=== PATIENT | male | born 1945 | race Caucasian/White ===

== ENCOUNTER 2020-04-05 03:03 | Outpatient (CLI) | payer MEDICARE, SELFPAY ==
[2020-04-05 12:47] LABS: Anion Gap 8.6 mmol/L (3-11); BUN 15 mg/dL (7-18); CO2 27.4 mmol/L (21.0-32.0); CREATININE 1.24 mg/dL (0.70-1.30); Calcium 9.4 mg/dL (8.5-10.1); Calculated LDL 93 mg/dL (<100); Chloride 104 mmol/L (98-107); Cholesterol 170 mg/dL (<200); Estimated GFR 57.14 (mL/min/1.73m2); Glucose 88 mg/dL (74-106); HDL Cholesterol 68 mg/dL (40-60); Potassium 4.9 mmol/L (3.5-5.1); Sodium 140 mmol/L (136-145); Triglyceride 49 mg/dL (<150)
== END 2020-04-05 03:23 ==
PROVIDERS: PCP Nurse Practitioner; Visit Provider Family Medicine
DX: I10 Essential (primary) hypertension (principal)
CPT/HCPCS: 36415; 80048; 80061

== ENCOUNTER 2021-04-05 03:52 | Outpatient (CLI) | payer MEDICARE, SELFPAY ==
[2021-04-05 09:23] LABS: Calculated LDL 103 mg/dL (<100); Cholesterol 190 mg/dL (<200); HDL Cholesterol 80 mg/dL (40-60); Triglyceride 38 mg/dL (<150)
== END 2021-04-05 03:53 | disposition home or self-care (01) ==
LOC: LBO 03:52
PROVIDERS: PCP Nurse Practitioner; Visit Provider Nurse Practitioner
DX: E78.5 Hyperlipidemia, unspecified (principal)
CPT/HCPCS: 36415; 80061

== ENCOUNTER 2022-03-15 01:35 | Outpatient (CLI) | payer MEDICARE, SELFPAY ==
--- OUTSIDE RECORDS SUMMARY | 2022-03-15 01:37 | XMS_ITS | Encounter Summary ---
:1945 Author Organization [facility] Address [address] [place] [address] Care Team Providers Name Role Phone Unavailable Primary Care Provider Unavailable Encounter Details Date Type Department Care Team Description 03/16/2004 Results Only [facility] - Comfort [place]in MD conversion [address] [place] [phone] Social History Tobacco Use Types Packs/Day Years Used Date Never Assessed Sex Assigned at Date Recorded Not on file documented as of this encounter Plan of Treatment Not on filedocumented as of this encounter Procedures Procedure Name Priority Date/Time Associated Diagnosis Comme nts SURGICAL PATHOLOGY Routine 03/16/2004 0:00 EDT Re sults for this procedure are i n the results section. documented in this encounter Results SURGICAL PATHOLOGY (03/16/2004 0:00 EDT) Pathology Report: SURGICAL PATHOLOGY REPORT SHASHI PINEDA Reports generated via electronic interface contain howie ginal data; LAB however they are lacking the format of the original re port. Caution should be taken when reading/interpreting unfo rmatted reports. Name: ? JOSE GASCA ? Accession #: ? [id number] ? : ? 1945 (Age: 58) ??M ? Collect Date: ? 03/16/2004 ? Location: ? [facility] ? Receive Date: ? 004 ? Provider: DANIEL HUGHES MD Copy to: COMFORT CASTRO MD ? Final Pathologic Diagnosis: ? Colon, polyp at 30.0 cm, polypectomy: - Tubular adenoma. Document reviewed and electronically signed by: Franklin Strong MD Report ??Date: 03/18/2004 16:45 By the signature above, the attending physician certif ies that he/she has personally conducted a gross and/or microscopic examin ation of the described specimens and rendered or confirmed the above diagnosi s. Specimen(s) Received: ? 30 cm bx, polyp Clinical History: ? 2 mm polyp @ 30 cm Gross Description: ? Received in Hollande's fixative labelled Macle od and #1 - 30 cm bx polyp are four irregular so ft tissue fragments ranging in size from 0.4 x 0.2 x 0.1 cm to 0.2 x 0.2 x 0.1 cm . ??The specimen is submitted intact in one cassette. (Dr. Chaney)/tamara End of Report Specimen Performing Organization Address City/State/ZIP Code Phon e Number [facility] [address] [place] [address] [facility] [address] [place] [address] documented in this encounter Visit Diagnoses Not on filedocumented in this encounter
--- OUTSIDE RECORDS SUMMARY | 2022-03-15 01:37 | XMS_ITS | Encounter Summary ---
:1945 Author Organization [facility] Address [address] [place] [address] Care Team Providers Name Role Phone Unavailable Primary Care Provider Unavailable Encounter Details Date Type Department Care Team Description 01/31/2007 Results Only [facility] - Comfort [place] MD conversion [address] [place] [phone] Social History Tobacco Use Types Packs/Day Years Used Date Never Assessed Sex Assigned at Date Recorded Not on file documented as of this encounter Plan of Treatment Not on filedocumented as of this encounter Procedures Procedure Name Priority Date/Time Associated Diagnosis Comme [facility] SURGICAL PATHOLOGY Routine 01/31/2007 0:00 EDT Re sults for this procedure are i n the results section. documented in this encounter Results SURGICAL PATHOLOGY (01/31/2007 0:00 EDT) Pathology Report: SURGICAL PATHOLOGY REPORT SHASHI PINEDA Reports generated via electronic interface contain howie ginal data; LAB however they are lacking the format of the original re port. Caution should be taken when reading/interpreting unfo rmatted reports. Name: ? JOSE GASCA ? Accession #: ? [id number] ? : ? 1945 (Age: 61) ??M ? Collect Date: ? 01/31/2007 ? Location: ? [facility] ? Receive Date: ? 007 ? Provider: DANIEL HUGHES MD Copy to: COMFORT CASTRO MD ? Final Pathologic Diagnosis: A. ?Colon, 20 cm, polyp, biopsy: 1. ?Hyperplastic polyp. B. ?Colon, 12 cm, polyp, biopsy: 1. ?Hyperplastic polyp, inflamed. C. ?Colon, 10 cm, polyp, biopsy: 1. ?Hyperplastic polyp, inflamed. ??See c omment. D. ?Colon, 6 cm, polyp, biopsy: 1. ?Hyperplastic polyp inflamed. Comment: ? Deeper levels of (C) have been examined. ??(Dr. Simpson)/[facility] Document reviewed and electronically signed by: Ruthann Simpson MD Report ??Date: 02/04/2007 16:35 By the signature above, the attending physician certif ies that he/she has personally conducted a gross and/or microscopic examin ation of the described specimens and rendered or confirmed the above diagnosi s. Specimen(s) Received: A. ?Polyp at 20 cm (#1) B. ? Polyp at 12 cm (#2) C. ? Polyp at 10 cm (#3) D. ? Polyp at 6 cm (#4) Clinical History: ? Personal hx colon polyps; multiple polyps Gross Description: ? Received in Hollande' s fixative labelled [place]leod and #1 ??polyp at 20 cm is a 0.2 x 0.2 x 0.1 cm poly poid soft tissue fragment which is submitted intact as (A). Received in Hollande's fixat leah labelled [place]leod and #2 ??polyp at 12 cm are four pieces of tissue, each of which measures 0.2 x 0. 2 x 0.2 cm with two submitted as (B1) and the remaining two as (B2). Received in [facility]'s fixat leah labelled [place]leod and #3 ??polyp at 10 cm is a 0.2 x 0.2 x 0.2 cm polypoid soft tissue fragment which is submitted intact as (C). Received in [facility] fixat leah labelled [place]leod and #4 ??polyp at 6 cm is a 0.2 x 0.2 x 0.1 cm polypoid soft tissue fragment which is submitted intact as (D). (Regi Danielson/marcelo End of Report Specimen Performing Organization Address City/State/ZIP Code Phon e Number [facility] [address] [place] [phone] [facility] [address] [place] [address] documented in this encounter Visit Diagnoses Not on filedocumented in this encounter
--- OUTSIDE RECORDS SUMMARY | 2022-03-15 01:37 | XMS_ITS | Encounter Summary ---
:1945 Author Organization [facility] Address [address] [place] [address] Care Team Providers Name Role Phone Unknown, Provider Primary Care Provider Encounter Details Date Type Department Care Team Description 06/20/2017 Hospital Encounter [facility] - S Unknown, Pro viderConrado MD [address] [facility] [phone] [place] [address] (Work) [phone] Social History Tobacco Use Types Packs/Day Years Used Date Never Assessed Sex Assigned at Date Recorded Not on file documented as of this encounter Discharge Disposition Disposition Code Departure Means Destination Home or Self [facility] documented in this encounter Plan of Treatment Not on filedocumented as of this encounter Visit Diagnoses Not on filedocumented in this encounter 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
--- OUTSIDE RECORDS SUMMARY | 2022-03-15 01:37 | XMS_ITS | Clinical Summary ---
:1945 Author Organization [facility] Address [address] [place] [address] Care Team Providers Name Role Phone Unknown, Provider Primary Care Provider Social History Tobacco Use Types Packs/Day Years Used Date Never Assessed Sex Assigned at Date Recorded Not on file Plan of Treatment Health Maintenance Due Date Last Done Comments Hepatitis C Screen 1945 COVID-19 Vaccine (1) 11/22/1951 Fall Risk Screening 11/22/2011 Care Teams Automobile Parker Relationship Specialty Start Date End Date Unknown, Provider, PCP - General 07/01/15
[2022-03-15 08:30] LABS: ALT 28 U/L (16-63); AST 24 U/L (15-37); Albumin 3.7 g/dL (3.4-5.0); Alkaline Phosphatase 80 U/L (46-116); Anion Gap 6.7 mmol/L (3-11); BUN 19 mg/dL (7-18); Bilirubin, Total 0.9 mg/dL (0.2-1.0); CO2 31.3 mmol/L (21.0-32.0); CREATININE 1.1 mg/dL (0.70-1.30); Calcium 8.7 mg/dL (8.5-10.1); Calculated LDL 100 mg/dL (<100); Chloride 102 mmol/L (98-107); Cholesterol 187 mg/dL (<200); Glucose 99 mg/dL (74-106); HDL Cholesterol 75 mg/dL (40-60); Potassium 3.8 mmol/L (3.5-5.1); Sodium 140 mmol/L (136-145); Total Protein 7.5 g/dL (6.4-8.2); Triglyceride 60 mg/dL (<150)
== END 2022-03-15 01:36 | disposition home or self-care (01) ==
LOC: LBO 01:35
PROVIDERS: PCP Nurse Practitioner; Visit Provider Nurse Practitioner
DX: E78.5 Hyperlipidemia, unspecified (principal)
CPT/HCPCS: 36415; 80053; 80061